=== PATIENT | male | born 1980 | race Caucasian/White ===

== ENCOUNTER 2017-03-26 16:24 | Outpatient (CLI) | payer OTHER ==
[2015-05-03 17:25] VITALS: BMI 25.8
[2017-03-26 17:23] LABS: BASOPHILS # (AUTO) 0.1 K/uL (0-0.2); BASOPHILS % (AUTO) 0.6 % (0.0-3.0); EOSINOPHILS # (AUTO) 0.1 K/ul (0.0-0.7); EOSINOPHILS % (AUTO) 1.7 % (0.0-7.0); IMMATURE GRANULOCYTE % (AUTO) 0.2 % (0.0-5.0); LYMPHOCYTES # (AUTO) 2.9 K/uL (0.60-3.4); LYMPHOCYTES % (AUTO) 34.8 (10.0-50.0); MEAN CORPUSCULAR HGB CONC 33.3 (31.8-35.4); MEAN CORPUSCULAR VOLUME 96.1 fl (80.0-94.0); MONOCYTES # (AUTO) 0.4 K/uL (0.4-2.0); MONOCYTES % (AUTO) 4.6 (0-10); NEUTROPHILS # (AUTO) 4.8 K/ul (2.0-6.9); NEUTROPHILS % (AUTO) 58.1; PLATELET COUNT 217 10^3/uL (140-440); RED BLOOD COUNT 4.06 10^6/ul (4.70-6.10); WHITE BLOOD COUNT 8.27 K/ul (4.2-10.2)
[2017-03-26 17:36] LABS: ALBUMIN 4.1 g/dL (3.4-5.0); ALBUMIN/GLOBULIN RATIO 1.08; ANION GAP 12.2; BILIRUBIN,TOTAL 0.42 mg/dL (0.00-1.20); BUN/CREATININE RATIO 10.46; CALCIUM 9.6 mg/dL (8.2-10.2); CREATININE 0.86 mg/dL (0.60-1.10); POTASSIUM 4.2 mmol/L (3.5-5.1); TOTAL PROTEIN 7.9 g/dL (6.4-8.2)
[2017-04-01 19:09] LABS: IGG P18 AB Absent (.); IGG P23 AB Absent (.); IGG P28 AB Absent (.); IGG P30 AB Absent (.); IGG P39 AB Absent (.); IGG P41 AB Present (.); IGG P45 AB Absent (.); IGG P58 AB Absent (.); IGG P66 AB Absent (.); IGG P93 AB Absent (.); IGM P39 AB Absent (.); IGM P41 AB Absent (.)
[2017-04-02 16:25] LABS: LYME IGG WB INTERP Negative (.); LYME IGM WB INTERP Negative (.)
== END 2017-03-26 16:25 | disposition home or self-care (01) ==
LOC: LAB 16:24
PROVIDERS: ATTEND Emergency Medicine
DX: E78.5 Hyperlipidemia, unspecified (principal); K21.9 Gastro-esophageal reflux disease without esophagitis; I10 Essential (primary) hypertension; I67.1 Cerebral aneurysm, nonruptured; R51 Headache; S40.861A Insect bite (nonvenomous) of right upper arm, initial encounter; W57.XXXA Bitten or stung by nonvenomous insect and other nonvenomous arthropods, initial encounter
CPT/HCPCS: 36415; 80053; 85025; 86617; 86757; 87798

== ENCOUNTER 2017-04-27 16:01 | Outpatient (CLI) ==
[2015-05-03 17:25] VITALS: BMI 25.8
[2017-04-27 17:01] LABS: BASOPHILS # (AUTO) 0.1 K/uL (0-0.2); BASOPHILS % (AUTO) 0.9 % (0.0-3.0); EOSINOPHILS # (AUTO) 0.2 K/ul (0.0-0.7); EOSINOPHILS % (AUTO) 2.1 % (0.0-7.0); HEMATOCRIT 38.8 % (42.0-52.0); IMMATURE GRANULOCYTE % (AUTO) 0.4 % (0.0-5.0); LYMPHOCYTES # (AUTO) 4.6 K/uL (0.60-3.4); LYMPHOCYTES % (AUTO) 48.6 (10.0-50.0); MEAN CORPUSCULAR HEMOGLOBIN 32.3 pg (27.0-31.0); MEAN CORPUSCULAR HGB CONC 33.5 (31.8-35.4); MEAN CORPUSCULAR VOLUME 96.5 fl (80.0-94.0); MONOCYTES # (AUTO) 0.8 K/uL (0.4-2.0); MONOCYTES % (AUTO) 8.4 (0-10); NEUTROPHILS # (AUTO) 3.7 K/ul (2.0-6.9); NEUTROPHILS % (AUTO) 39.6; PLATELET COUNT 279 10^3/uL (140-440); RED BLOOD COUNT 4.02 10^6/ul (4.70-6.10); WHITE BLOOD COUNT 9.39 K/ul (4.2-10.2)
== END 2017-04-27 16:02 | disposition home or self-care (01) ==
LOC: LAB 16:01
PROVIDERS: ATTEND Nurse Practitioner Family
DX: D72.829 Elevated white blood cell count, unspecified (principal)
CPT/HCPCS: 36415; 85025

== ENCOUNTER 2017-07-28 14:06 | Outpatient (CLI) | payer OTHER ==
[2015-05-03 17:25] VITALS: BMI 25.8
[2017-07-28 14:17] LABS: BASOPHILS # (AUTO) 0.1 K/uL (0-0.2); BASOPHILS % (AUTO) 0.5 % (0.0-3.0); EOSINOPHILS # (AUTO) 0.2 K/ul (0.0-0.7); EOSINOPHILS % (AUTO) 1.6 % (0.0-7.0); HEMATOCRIT 38.3 % (42.0-52.0); HEMOGLOBIN 12.8 g/dl (14.0-18.0); IMMATURE GRANULOCYTE % (AUTO) 0.2 % (0.0-5.0); LYMPHOCYTES # (AUTO) 3.5 K/uL (0.60-3.4); LYMPHOCYTES % (AUTO) 28.9 (10.0-50.0); MEAN CORPUSCULAR HEMOGLOBIN 32.1 pg (27.0-31.0); MEAN CORPUSCULAR HGB CONC 33.4 (31.8-35.4); MONOCYTES # (AUTO) 0.9 K/uL (0.4-2.0); MONOCYTES % (AUTO) 6.9 (0-10); NEUTROPHILS # (AUTO) 7.6 K/ul (2.0-6.9); NEUTROPHILS % (AUTO) 61.9; PLATELET COUNT 207 10^3/uL (140-440); RED BLOOD COUNT 3.99 10^6/ul (4.70-6.10); WHITE BLOOD COUNT 12.24 K/ul (4.2-10.2)
[2017-07-29 07:21] LABS: RHEUMATOID ARTHRITIS FACTOR < 10.0 IU/mL (0.0-13.9)
[2017-07-29 13:17] LABS: ANTI-NUCLEAR ANTIBODY SCREEN Negative (Negative)
== END 2017-07-28 14:07 | disposition home or self-care (01) ==
LOC: LAB 14:06
PROVIDERS: ATTEND Emergency Medicine
DX: M25.649 Stiffness of unspecified hand, not elsewhere classified (principal); I10 Essential (primary) hypertension
CPT/HCPCS: 36415; 85025; 86038; 86430

== ENCOUNTER 2018-05-03 10:11 | Outpatient (CLI) ==
[2015-05-03 17:25] VITALS: BMI 25.8
--- NOTE | 2018-05-03 12:35 | CT ---
EXAM: CT head without contrast. HISTORY: Weakness. COMPARISON: 05/03/2015. TECHNIQUE: Multiple axial images of the brain were obtained from the skull base through the vertex w ithout intravenous contrast. Multiplanar reformats were provided. FINDINGS: Left parasellar aneurysm coils again noted. Discrete some beam hardening artifact, limiti ng evaluation of the brain parenchyma near this area. Otherwise, there is no intracranial hemorrhage or extraaxial collection. The major-white differentiation is maintained without evidence for acute l arge vascular territory infarction. The cortical sulci and basal cisterns are well visualized. Ther e is no hydrocephalus, mass effect, or midline shift. The paranasal sinuses and mastoid air cells ar e clear. The calvarium is intact. Since the prior study, there has been no significant interval forest nge. IMPRESSION: No acute intracranial abnormality.
== END 2018-05-03 10:12 | disposition home or self-care (01) ==
LOC: RAD 10:11
PROVIDERS: ATTEND Emergency Medicine
DX: R51 Headache (principal); I10 Essential (primary) hypertension; I67.1 Cerebral aneurysm, nonruptured; E78.5 Hyperlipidemia, unspecified; R53.1 Weakness
CPT/HCPCS: 36415; 80053; 80061; 84443; 85025

== ENCOUNTER 2019-02-08 10:59 | Outpatient (CLI) ==
[2015-05-03 17:25] VITALS: BMI 25.8
== END 2019-02-08 11:00 | disposition home or self-care (01) ==
LOC: RHC-LAB 10:59 → FCC-LAB 11:00
PROVIDERS: ATTEND Family Medicine
DX: I67.1 Cerebral aneurysm, nonruptured (principal); I10 Essential (primary) hypertension; F33.1 Major depressive disorder, recurrent, moderate; Z13.220 Encounter for screening for lipoid disorders; R21 Rash and other nonspecific skin eruption
CPT/HCPCS: 36415; 80053; 80061; 83520; 85025; 85651; 86038; 86256

== ENCOUNTER 2023-06-08 14:13 | Observation (INO) ==
[2023-06-08 14:31] VITALS: BP 120/69
[2023-06-08] MEDS ORDERED: TORADOL IM ONE (15:17)
[2023-06-08 15:36] LABS: BASOPHILS # (AUTO) 0.1 K/uL (0-0.2); BASOPHILS % (AUTO) 0.6 % (0.0-3.0); EOSINOPHILS # (AUTO) 0.3 K/ul (0.0-0.7); HEMATOCRIT 37.1 % (42.0-52.0); IMMATURE GRANULOCYTE # (AUTO) 0.1 (0.0-1.0); IMMATURE GRANULOCYTE % (AUTO) 0.4 % (0.0-5.0); LYMPHOCYTES # (AUTO) 3.1 K/uL (0.60-3.4); LYMPHOCYTES % (AUTO) 19.2 (10.0-50.0); MEAN CORPUSCULAR HEMOGLOBIN 31.2 pg (27.0-31.0); MEAN CORPUSCULAR HGB CONC 32.3 (31.8-35.4); MEAN CORPUSCULAR VOLUME 96.4 fl (80.0-94.0); MONOCYTES # (AUTO) 1.4 K/uL (0.4-2.0); MONOCYTES % (AUTO) 8.4 (0-10); NEUTROPHILS # (AUTO) 11.3 K/ul (2.0-6.9); NEUTROPHILS % (AUTO) 69.4 % (42.2-75.2); PLATELET COUNT 259 10^3/uL (140-440); RDW COEFFICIENT OF VARIATION 12.9 % (11.6-14.8); RED BLOOD COUNT 3.85 10^6/ul (4.70-6.10); WHITE BLOOD COUNT 16.29 K/ul (4.2-10.2)
--- NOTE | 2023-06-08 15:47 | CT ---
EXAM: CT ABDOMEN AND PELVIS HISTORY: Abdominal pain, infrequent bowel movements TECHNIQUE: CT abdomen and pelvis without intravenous contrast. Images were reconstructed using 5 mm section thickness. Reformations were prepared. COMPARISON: 01/10/2013 FINDINGS: Diagnostic limitations exist without including intravenous contrast enhanced images. Live r appears normal. Normal gallbladder. No biliary dilatation or pancreatic pathology. Spleen and ad renal glands are unremarkable. Kidneys and ureters appear normal. There is mild atherosclerotic dis ease. Stable nonspecific mildly prominent retroperitoneal, mesenteric and inguinal lymph nodes. Sto mach is normal. What appears to represent the appendix is normal. There is at least mild wall thick ening of the rectosigmoid colon with mild paracolic fat stranding suggesting active distal colitis/pr octitis. The bowel was otherwise within normal limits. No excessive fecal retention. No bowel obst ruction, ascites or free air. Urinary bladder prostate are normal. No abdominal wall hernia. Bones are normal. Lung bases are clear. IMPRESSION: 1. There is at least mild wall thickening of the rectosigmoid colon with mild paracolic fat strandin g suggesting active distal colitis/proctitis. Consider inflammatory or infectious etiologies. The b owel was otherwise within normal limits. No excessive fecal retention. No bowel obstruction, ascite s or free air. 2. Minimal atherosclerosis. - - - - - All CT scans are performed using dose optimization techniques as appropriate to the performed exam an d include at least one of the following: Automated exposure control, adjustment of the mA and/or kV according t o size, and the use of iterative reconstruction technique.
[2023-06-08 15:52] LABS: ALANINE AMINOTRANSFERASE 36.4 U/L (0-50); ALBUMIN 4.42 g/dL (3.5-5.0); ALKALINE PHOSPHATASE 111.7 U/L (38-126); ASPARTATE AMINO TRANSFERASE 31.2 U/L (17-59); BILIRUBIN,TOTAL 0.34 mg/dL (0.2-1.3); BLOOD UREA NITROGEN 18.9 mg/dL (9-20); CALCIUM 9.67 mg/dL (8.4-10.2); CARBON DIOXIDE 22.8 mmol/L (22-30.0); CREATININE 1.26 mg/dL (0.60-1.10); GLUCOSE 104.7 mg/dL (74-106); POTASSIUM 4.61 mmol/L (3.5-5.1); SODIUM 138.5 mmol/L (134.5-145); TOTAL PROTEIN 8.77 g/dL (6.3-8.2)
[2023-06-08 16:04] LABS: BILIRUBIN,URINE Negative (NEGATIVE); CLARITY,URINE Clear (CLEAR); COLOR,URINE Yellow (YELLOW); GLUCOSE, URINE (UA) Negative (NEGATIVE); KETONES,URINE Negative (NEGATIVE); LEUKOCYTE ESTERASE ,URINE Negative (NEGATIVE); NITRITE,URINE Negative (NEGATIVE); PROTEIN,URINE Negative (NEGATIVE); URINE, BLOOD Negative (NEGATIVE); UROBILINOGEN,URINE 0.2 (0.2)
[2023-06-08] MEDS ORDERED: ZOSYN 3.375 GM 3.375 GM in SODIUM CHLORIDE 100ML 100 ML IV ONE (16:48)
[2023-06-08] MEDS ORDERED: LACTULOSE PO STA (16:48)
[2023-06-08] MEDS ORDERED: K-DUR PO STA (16:49)
--- NOTE | 2023-06-08 16:58 | ED.PDOC ---
General ED Provider: Dr. NAKITA RUEDA MD Chief Complaint: Constipation Stated Complaint: abdominal pain, constipation Time Seen by Provider: 06/08/23 15:10 Information Source: Patient Primary Care Provider: BILL CARMICHAEL MD Referred to ED by: PCP Nursing and Triage Documentation Reviewed and Agree: Yes GI Complaint Exam Abdominal Pain Complaint/Exam Onset: Gradual Duration: few days Symptoms Are: Still present Timing: Constant Initial Severity: Moderate Current Severity: Moderate Location of Pain: RLQ, LLQ and Suprapubic Character: Reports Dull Review of Systems Review Of Systems Constitutional: Reports Weakness All Other Systems: Reviewed and Negative [facility] Medical History Hyperlipidemia E78.5 - Hyperlipidemia, unspecified (ICD-10) Family History Mother Diabetes FATHER Ulcerative colitis Social History Smoking and tobacco status: Current some day smoker Tobacco type: cigarettes Smoking cigarettes per day: 6 Tobacco: How many years used: 10 Passive smoking exposure: No How long ago did patient quit smoking: has gone from 2 ppd to 4-6 cigs per day Quit status: considering quitting Second hand smoke exposure: Yes Smoking risk assessment performed: No Alcohol intake: current Counseling given: No Counseling provided: none Substance use type: does not use Counseling given: No Counseling provided: none Ludmila/nondenominational: WORSHIP Special ludmila needs: No Agree to transfusion: Yes Adopted: No Caregiver/support person: No Foster care: No Household members: none Housing: house Marital status: D Lives independently: Yes Daycare: no daycare Number of children: 2 Number of grandchildren: 0 Highest education level completed: high school graduate Financial difficulty paying for basics: hard service: No jail: No Current occupational status: unemployed and disabled Current occupational exposures/hazards: No Pets and animals: Yes Leisure activites: exercise, hunting and fishing History of recent travel: Yes Sexually active: Yes Do you think of yourself as: straight/heterosexual Current gender identity: male Seatbelt use: always Helmet use: No Drives intoxicated or rides with intoxicated pharmacy delivery driver: No Current diet type/program: regular Caffeine: Yes Eating out: 1-3 times/week Reads food labels: seldom or never During the past year weight has: remained stable Water heater temperature set < 120 degrees: Yes Working smoke detector in home: Yes Fire extinguisher in home: Yes Carbon monoxide detector in home: Yes Firearms in home: Yes Firearms unloaded and locked: Yes What type of physical activity do you participate in?: walking Physical activity functional status: independent ambulation How many days of moderate to strenuous exercise, like a brisk walk, did you do in the last 7 days: 4 Surgical History 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) History of neurologic surgery Z98.890 - Other specified postprocedural states (ICD-10) Physical Exam Physical Exam Appearance: Reports Ill-appearing Ill-appearing: Mild Pain Distress: Mild Eyes: Reports LAURA and EOMI ENT: Reports Ears normal and Nose normal Neck: Supple Respiratory: Reports Airway patent, Breath sounds clear and Breath sounds equal Cardiovascular: Reports RRR, Pulses normal, No rub and No murmur GI/: Reports Soft, Bowel sounds normal and Tender (Generalized pelvic tenderness more in LLQ) Musculoskeletal: Reports Normal strength Skin: Reports Warm and Normal color Neurological: Reports Sensation intact and Motor intact Psychiatric: Reports Affect appropriate Interpretation EKG Interpretation EKG Interpretation By: ED Physician Time of EKG #1: 16:34 Rate: Normal Rhythm: Sinus Ectopy: None [place]: [place] Interpretation: early repolarization, No STEMI Physician Notification Case Discussed Physician Notified: Dr. Benito PCP Time of Notification: 16:00 Comments: patient will be admitted for IV antibiotics for colitis, Dr. benito agrees with plan of care Critical Care Note Critical Care Note Total Critical Care Time (mins): 0 Course Course 06/08/23 15:30 06/08/23 15:30 Orders, Labs, Meds: Lab Review 06/08/23 06/08/23 06/08/23 15:30 15:50 16:30 WBC 16.29 H RBC 3.85 L Hgb 12.0 L Hct 37.1 L MCV 96.4 H MCH 31.2 H MCHC 32.3 RDW Coeff of Yana 12.9 Plt Count 259 Immature Gran % (Auto) 0.4 Neut % (Auto) 69.4 Lymph % (Auto) 19.2 Harlan % (Auto) 8.4 Eos % (Auto) 2.0 Baso % (Auto) 0.6 Neut # (Auto) 11.3 H Lymph # (Auto) 3.1 Harlan # (Auto) 1.4 Eos # (Auto) 0.3 Baso # (Auto) 0.1 Immature Gran # (Auto) 0.1 Sodium 138.5 Potassium 4.61 Chloride 104.0 Carbon Dioxide 22.8 Anion Gap 16.31 BUN 18.9 Creatinine 1.26 H Estimated GFR (MDRD) 62.00 BUN/Creatinine Ratio 15.00 Glucose 104.7 Lactic Acid 0.89 Calcium 9.67 Total Bilirubin 0.34 AST 31.2 ALT 36.4 Alkaline Phosphatase 111.7 Total Protein 8.77 H Albumin 4.42 Globulin 4.35 Albumin/Globulin Ratio 1.01 Urine Color Yellow Urine Clarity Clear Urine pH 6.0 Ur Specific [place] 1.025 Urine Protein Negative Urine Glucose (UA) Negative Urine Ketones Negative Urine Blood Negative Urine Nitrite Negative Urine Bilirubin Negative Urine Urobilinogen 0.2 Ur Leukocyte Esterase Negative SARS CoV-2 RNA Rapid CHARLENE 06/08/23 16:40 WBC RBC Hgb Hct MCV MCH MCHC RDW Coeff of Yana Plt Count Immature Gran % (Auto) Neut % (Auto) Lymph % (Auto) [place] % (Auto) Eos % (Auto) Baso % (Auto) Neut # (Auto) Lymph # (Auto) [place] # (Auto) Eos # (Auto) Baso # (Auto) Immature Gran # (Auto) Sodium Potassium Chloride Carbon Dioxide Anion Gap BUN Creatinine Estimated GFR (MDRD) BUN/Creatinine Ratio Glucose Lactic Acid Calcium Total Bilirubin AST ALT Alkaline Phosphatase Total Protein Albumin Globulin Albumin/Globulin Ratio Urine Color Urine Clarity Urine pH Ur Specific [place] Urine Protein Urine Glucose (UA) Urine Ketones Urine Blood Urine Nitrite Urine Bilirubin Urine Urobilinogen Ur Leukocyte Esterase SARS CoV-2 RNA Rapid CHARLENE Negative Orders Category Date Time Status ADMIT OBSERVATION [PLACE PATIENT OBSERVATION] .TO ADMISSION 06/08/23 17:08 Active MEDSURG (NON-MONITORED BED) EKG-(ED ONLY) Stat CARDIO 06/08/23 16:27 Completed ACTIVITY .Early Mobilization for VTE Prevention CARE 06/08/23 17:56 Active GIVE HS SNACK 2100 CARE 06/08/23 17:56 Active INTAKE & OUTPUT Q8HR CARE 06/08/23 17:56 Active VITAL SIGNS Q4HR CARE 06/08/23 17:56 Active CLEAR LIQUID DIET DIETARY 06/08/23 Dinner Ordered HS SNACK DIETARY 06/08/23 Dinner Ordered Enema [ED ENEMA/RECTAL TUBE] .ONCE EMERGENCY 06/08/23 16:01 Active BLOOD CULTURE Stat LAB 06/08/23 16:50 Received CBC W/ AUTO DIFF DAILY@0600 LAB 06/09/23 06:00 Ordered CBC W/ AUTO DIFF DAILY@0600 LAB 06/10/23 06:00 Ordered CBC W/ AUTO DIFF Stat LAB 06/08/23 15:30 Completed CMP [COMPREHENSIVE METABOLIC PANEL] Stat LAB 06/08/23 15:30 Completed COMPREHENSIVE METABOLIC PANEL DAILY@0600 LAB 06/09/23 06:00 Ordered COMPREHENSIVE METABOLIC PANEL DAILY@0600 LAB 06/10/23 06:00 Ordered COVID [SARS COV-2 RNA RAPID CHARLENE] Stat LAB 06/08/23 16:40 Completed LACTIC ACID Stat LAB 06/08/23 16:30 Completed URINALYSIS C & S IF INDICATED Stat LAB 06/08/23 15:50 Completed Acetaminophen [Tylenol] Meds 06/08/23 17:56 Active 650 mg PO Q4H PRN Ketorolac Tromethamine [Toradol] Meds 06/08/23 15:17 Discontinued 60 mg IM ONCE ONE Lactulose Meds 06/08/23 16:48 Discontinued 20 gm PO ONCE STA Metoclopramide HCl [Reglan] Meds 06/08/23 17:56 Pending 10 mg IVP Q6H PRN Ondansetron HCl/Pf [Zofran 4 mg/2 ml] Meds 06/08/23 17:56 Active 4 mg IVP Q6H PRN Piperacillin Sodium/Tazobactam [Zosyn 3.375 gm] 3.375 Meds 06/08/23 16:48 Discontinued gm 0.9 % Sodium Chloride [Sodium Chloride 100Ml] 100 ml IV ONCE Piperacillin Sodium/Tazobactam [Zosyn 3.375 gm] 3.375 Meds 06/08/23 18:00 Active gm 0.9 % Sodium Chloride [Sodium Chloride 100Ml] 100 ml IV Q8H Potassium Chloride [K-Dur] Meds 06/08/23 16:49 Discontinued 20 meq PO ONCE STA Sodium Chloride 0.9% [Sodium Chloride] 1,000 ml Meds 06/08/23 18:00 Active IV 100 mls/hr CT ABDOMEN/PELVIS WO CONTRAST Stat RADS 06/08/23 15:10 Completed Medications Generic Name Dose Route Start Last Admin Trade Name Freq PRN Reason Stop Dose Admin Acetaminophen 650 mg 06/08/23 17:56 Acetaminophen 325 Mg Tablet PO Q4H PRN Pain Sodium Chloride 1,000 mls @ 100 mls/hr 06/08/23 18:00 Sodium Chloride IV .Q10H [facility] Piperacillin Sod/Tazobactam 100 mls @ 200 mls/hr 06/08/23 18:00 Sod 3.375 gm/ Sodium Chloride IV 06/11/23 17:59 Q8H [facility] Metoclopramide HCl 10 mg 06/08/23 17:56 Metoclopramide Hcl 10 Mg/2 Ml IVP Q6H PRN Nausea / Vomiting Ondansetron HCl 4 mg 06/08/23 17:56 Ondansetron Hcl/Pf 4 Mg/2 Ml Sdv IVP Q6H PRN Nausea / Vomiting Discontinued Medications Generic Name Dose Route Start Last Admin Trade Name Freq PRN Reason Stop Dose Admin Piperacillin Sod/Tazobactam 100 mls @ 200 mls/hr 06/08/23 16:48 06/08/23 18:43 Sod 3.375 gm/ Sodium Chloride IV 06/08/23 17:17 200 mls/hr ONCE ONE Administration Ketorolac Tromethamine 60 mg 06/08/23 15:17 06/08/23 15:31 Ketorolac Tromethamine 60 Mg/2 Ml Vial IM 06/08/23 15:18 60 mg ONCE ONE Administration Lactulose 20 gm 06/08/23 16:48 06/08/23 18:35 Lactulose 20 Gm/30 Ml Cup PO 06/08/23 16:49 20 gm ONCE STA Administration Potassium Chloride 20 meq 06/08/23 16:49 06/08/23 18:23 Potassium Chloride 20 Meq Tab PO 06/08/23 16:50 Not Given ONCE STA Vital Signs: Temp Pulse Resp BP Pulse Ox 06/08/23 14:19 98.8 F 76 14 120/69 98 43 years old male with a past medical history of hypertension, seizure disorder, dyslipidemia, brain aneurysm who was sent to the ER by Dr. Benito for abdominal pain/constipation. Patient have not had a bowel movement for the last few days and feeling pain in his lower abdomen tried multiple [id number] medications/suppositories for constipation but none helped he was at Dr. Carmichael office today who saw him and he wanted him to come to the ER to get checked. Patient's WBC is 16.7 with left shift CAT scan showed distal sigmoid colon rectal wall thickening with pericolic stranding consistent with active colitis. Patient will be treated with Fleet enema. Call Dr. Carmichael discussed the findings with him and recommended getting the patient admitted for IV anti biotics for his colitis at this time lactic acid is pending blood cultures pending then patient will get Zosyn 3.375 mg IV.Given the patient's elevated white cell count and the findings on the CAT scan patient will be admitted discussed the case with the hospitalist ebony Briseno and she accepted the patient to be admitted to her services. Discharge Plan Discharge Patient Disposition: ADMITTED INPATIENT Discharge Problem: Acute proctitis, Colitis, Constipation Did you review [place] [employer] for ALL controlled substances?: Not Applicable ED Provider: NAKITA RUEDA Condition: Stable Physician Progress Note: []
[2023-06-08 17:25] LABS: SARS COV-2 RNA RAPID NAAT NEGATIVE (NEGATIVE)
[2023-06-08] MEDS ORDERED: REGLAN IVP PRN (17:56)
[2023-06-08] MEDS ORDERED: ZOFRAN 4 MG/2 ML IVP PRN (17:56)
[2023-06-08] MEDS ORDERED: TYLENOL PO PRN (17:56)
[2023-06-08] MEDS ORDERED: ZOSYN 3.375 GM 3.375 GM in SODIUM CHLORIDE 100ML 100 ML IV SCH (18:00)
[2023-06-08] MEDS ORDERED: SODIUM CHLORIDE 1,000 ML IV SCH (18:00)
[2023-06-08] MEDS ORDERED: TORADOL IVP PRN (20:09)
[2023-06-08] MEDS ORDERED: PROTONIX IV ONE (20:15)
[2023-06-08] MEDS ORDERED: SODIUM CHLORIDE IV ONE (20:15)
[2023-06-08] MEDS ORDERED: NICODERM 21 MG TD SCH (21:00)
[2023-06-08 21:08] VITALS: PULSE 68; RESP 16; TEMP 98.1; BMI 24.5
--- NOTE | 2023-06-08 21:39 | PCM.SS ---
Provider Provider: LAURA CHRISTIANSON, [facility] [place], [place] Admission Date Admission Date: 06/08/23 Discharge Date Discharge Date: 06/08/23 Primary Care Physician Primary Care Physician: BILL CARMICHAEL MD Chief Complaint Reason For Visit: COLITIS, PROCTITIS History of Present Illness History of Present Illness: Admitted 06/08/23 19:26, this 43 year old /WHITE/M presented to the ER with complaints of constipation. Patient takes narcotics for chronic pain and was sent to the ER from Dr. Carmichael' office to rule out a bowel obstruction. No obstruction was found, but CT scan showed colitis/proctitis. Patient was admitted to the floor after hospitalist day time hours and was not physically examined by this provider. Thus unable to provide further hpi and ROS. Patient reported to nurse that he would like to sign out AMA and reported that he would follow-up with Dr. Carmichael in his office. 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) History of neurologic surgery Z98.890 - Other specified postprocedural states (ICD-10) Family History Mother Diabetes FATHER Ulcerative colitis Social History Smoking and tobacco status: Current some day smoker Tobacco type: cigarettes Smoking cigarettes per day: 6 Tobacco: How many years used: 10 Passive smoking exposure: No How long ago did patient quit smoking: has gone from 2 ppd to 4-6 cigs per day Quit status: considering quitting Second hand smoke exposure: Yes Smoking risk assessment performed: No Alcohol intake: current Counseling given: No Counseling provided: none Substance use type: does not use Counseling given: No Counseling provided: none Ludmila/buddhism: YARSANISM Special ludmila needs: No Agree to transfusion: Yes Adopted: No Caregiver/support person: No Foster care: No Household members: none Housing: house Marital status: D Lives independently: Yes Daycare: no daycare Number of children: 2 Number of grandchildren: 0 Highest education level completed: high school graduate Financial difficulty paying for basics: hard service: No FDC: No Current occupational status: unemployed and disabled Current occupational exposures/hazards: No Pets and animals: Yes Leisure activites: exercise, hunting and fishing History of recent travel: Yes Sexually active: Yes Do you think of yourself as: straight/heterosexual Current gender identity: male Seatbelt use: always Helmet use: No Drives intoxicated or rides with intoxicated stacker driver: No Current diet type/program: regular Caffeine: Yes Eating out: 1-3 times/week Reads food labels: seldom or never During the past year weight has: remained stable Water heater temperature set < 120 degrees: Yes Working smoke detector in home: Yes Fire extinguisher in home: Yes Carbon monoxide detector in home: Yes Firearms in home: Yes Firearms unloaded and locked: Yes What type of physical activity do you participate in?: walking Physical activity functional status: independent ambulation How many days of moderate to strenuous exercise, like a brisk walk, did you do in the last 7 days: 4 Medications Mecications: Medications at Discharge (Home Meds & RX) diphenhydramine HCl 25 mg capsule (Sleep Aid (diphenhydramine)) 25 mg PO QHS 08/28/21 simvastatin 20 mg tablet 20 mg PO QDAY #90 tabs 12/05/22 pantoprazole 40 mg tablet,delayed release See Rx Instructions .Route .COMPLEX #60 tabs 04/21/23 alprazolam 0.5 mg tablet (Xanax) 0.5 mg PO QDAY #12 tabs 05/06/23 levetiracetam 500 mg tablet,extended release 24 hr (Keppra XR) 500 mg PO BID #60 tabs 05/06/23 lisinopril 20 mg tablet 20 mg PO QDAY Essential Hypertenson #90 tabs 06/01/23 metoprolol tartrate 25 mg tablet 25 mg PO BID 90 days #180 tab-caps 06/01/23 amoxicillin 875 mg-potassium clavulanate 125 mg tablet 1 tab PO BID #20 tabs 06/08/23 oxycodone-acetaminophen 10 mg-325 mg tablet 1 tab PO QID PRN pain 06/08/23 Allergies Allergies Allergy/AdvReac Type Severity Reaction Status Date / Time naproxen [From Aleve] AdvReac Severe Difficulty Verified 06/08/23 20:27 Breathing sildenafil [From Viagra] AdvReac Intermediate Headache Verified 06/08/23 20:27 topiramate [From Topamax] AdvReac swelling Verified 06/08/23 20:27 of tounge/throat Vital Signs (Last 4 Hours) Vital Signs Last 4 Hours: Vital Signs: Last 4 Hours 06/08/23 19:57 Temperature 98.1 F Temperature Source Oral Pulse Rate 68 Respiratory Rate 16 Blood Pressure Left Arm 101/61 Blood Pressure Position Sitting O2 Sat by Pulse Oximetry 100 Oxygen Delivery Method Room Air Height 5 ft 9 in Weight 166 lb Labs This Visit Labs This Visit: Labs This Visit 06/08/23 06/08/23 06/08/23 15:30 15:50 16:30 WBC 16.29 H RBC 3.85 L Hgb 12.0 L Hct 37.1 L MCV 96.4 H MCH 31.2 H MCHC 32.3 RDW Coeff of Yana 12.9 Plt Count 259 Immature Gran % (Auto) 0.4 Neut % (Auto) 69.4 Lymph % (Auto) 19.2 [place] % (Auto) 8.4 Eos % (Auto) 2.0 Baso % (Auto) 0.6 Neut # (Auto) 11.3 H Lymph # (Auto) 3.1 Sumner # (Auto) 1.4 Eos # (Auto) 0.3 Baso # (Auto) 0.1 Immature Gran # (Auto) 0.1 Sodium 138.5 Potassium 4.61 Chloride 104.0 Carbon Dioxide 22.8 Anion Gap 16.31 BUN 18.9 Creatinine 1.26 H Estimated GFR (MDRD) 62.00 BUN/Creatinine Ratio 15.00 Glucose 104.7 Lactic Acid 0.89 Calcium 9.67 Total Bilirubin 0.34 AST 31.2 ALT 36.4 Alkaline Phosphatase 111.7 Total Protein 8.77 H Albumin 4.42 Globulin 4.35 Albumin/Globulin Ratio 1.01 Urine Color Yellow Urine Clarity Clear Urine pH 6.0 Ur Specific [place] 1.025 Urine Protein Negative Urine Glucose (UA) Negative Urine Ketones Negative Urine Blood Negative Urine Nitrite Negative Urine Bilirubin Negative Urine Urobilinogen 0.2 Ur Leukocyte Esterase Negative SARS CoV-2 RNA Rapid CHARLENE 06/08/23 16:40 WBC RBC Hgb Hct MCV MCH MCHC RDW Coeff of Yana Plt Count Immature Gran % (Auto) Neut % (Auto) Lymph % (Auto) [place] % (Auto) Eos % (Auto) Baso % (Auto) Neut # (Auto) Lymph # (Auto) Sumner # (Auto) Eos # (Auto) Baso # (Auto) Immature Gran # (Auto) Sodium Potassium Chloride Carbon Dioxide Anion Gap BUN Creatinine Estimated GFR (MDRD) BUN/Creatinine Ratio Glucose Lactic Acid Calcium Total Bilirubin AST ALT Alkaline Phosphatase Total Protein Albumin Globulin Albumin/Globulin Ratio Urine Color Urine Clarity Urine pH Ur Specific [place] Urine Protein Urine Glucose (UA) Urine Ketones Urine Blood Urine Nitrite Urine Bilirubin Urine Urobilinogen Ur Leukocyte Esterase SARS CoV-2 RNA Rapid CHARLENE Negative Imaging Imaging: EXAM: CT ABDOMEN AND PELVIS HISTORY: Abdominal pain, infrequent bowel movements TECHNIQUE: CT abdomen and pelvis without intravenous contrast. Images were reconstructed using 5 mm section thickness. Reformations were prepared. COMPARISON: 01/10/2013 FINDINGS: Diagnostic limitations exist without including intravenous contrast enhanced images. Liver appears normal. Normal gallbladder. No biliary dilatation or pancreatic pathology. Spleen and adrenal glands are unremarkable. Kidneys and ureters appear normal. There is mild atherosclerotic disease. Stable nonspecific mildly prominent retroperitoneal, mesenteric and inguinal lymph nodes. Stomach is normal. What appears to represent the appendix is normal. There is at least mild wall thickening of the rectosigmoid colon with mild paracolic fat stranding suggesting active distal colitis/proctitis. The bowel was otherwise within normal limits. No excessive fecal retention. No bowel obstruction, ascites or free air. Urinary bladder prostate are normal. No abdominal wall hernia. Bones are normal. Lung bases are clear. IMPRESSION: 1. There is at least mild wall thickening of the rectosigmoid colon with mild paracolic fat stranding suggesting active distal colitis/proctitis. Consider inflammatory or infectious etiologies. The bowel was otherwise within normal limits. No excessive fecal retention. No bowel obstruction, ascites or free air. 2. Minimal atherosclerosis. Review Review Statement: I have independently reviewed and interpreted the labs/EKGs/imaging that were ordered by the ER provider. I have reviewed all outside records that are available currently in our EMR including imaging/notes/labs from previous visits. Plan Reccomendations/Plan: 1. Colitis/Proctitis - started on zosyn in the ER, clear liquid diet, zofran and protonix ordered, torodol for pain, NS@100mL/hr; also received enema in ER 2. Leukocytosis - in setting of colitis/proctitis, treating with zosyn, trend and monitor for improvement 3. Constipation in setting of chronic opiate use - stool softener, increase fiber and fluids in diet 4. Hypertension - chronic, continue home medications 5. Seizures - chronic, continue home medications Additional Planning: Case discussed with ED Physician, Dr. Bennett DVT Prophylaxis: Up ad [place] [facility] minutes spent discussing advance care planning. Disposition: Admit to: Med/Surg Observation Discussed Plan of Care with Dr. Richard Mckeon If patient discharged with Left Ventricular Systolic Dysfunction: NA Discharged with a beta cathi? [] If no, why not? [] Clear liquid diet advance as tolerated Activity as tolerated Complete course of augmentin to treat Colitis Follow-up with Dr. Carmichael this week Limit use of opiates at this time due to colitis Review With Patient Reviewed with Patient and Family: Patient and family have been counseled on condition and care plan and have no immediate questions. I have personally discussed and reviewed the patient's visit/current labs/imaging/decision making with Dr. Brenda Mckeon, my supervising attending. Total number of minutes spent with patient 85 min. More than 50% of the time spent with this patient was devoted to counseling and coordination of care. Time of Admission:06/08/23 19:26 Time of Discharge: 06/08/23 2130 Discharge Plan Discharge Discharge Orders: Discharge Patient (ONCE); Ordered 06/08/23 Ordered By: GRACIELA GARCIA Activity Restrictions/Additional Instructions: Clear liquid diet advance as tolerated Activity as tolerated Complete course of augmentin to treat Colitis Follow-up with Dr. Carmichael this week Limit use of opiates at this time due to colitis. Instructions: Colitis (ED) Patient Disposition: AMA Prescriptions: New amoxicillin-pot clavulanate 875-125 mg tablet 1 tab PO BID Qty: 20 0RF Continued simvastatin 20 mg tablet 20 mg PO QDAY Qty: 90 1RF pantoprazole 40 mg tablet,delayed release (DR/EC) See Rx Instructions .ROUTE .COMPLEX Qty: 60 3RF Dose Instruction: TAKE 1 TABLET BY MOUTH TWICE DAILY Rx Instructions: TAKE 1 TABLET BY MOUTH TWICE DAILY levetiracetam [Keppra XR] 500 mg tablet extended release 24 hr 500 mg PO BID Qty: 60 2RF alprazolam [Xanax] 0.5 mg tablet 0.5 mg PO QDAY Qty: 12 1RF Rx Instructions: 2-3x weekly. metoprolol tartrate 25 mg tablet 25 mg PO BID 90 Days Qty: 180 2RF lisinopril 20 mg tablet 20 mg PO QDAY Qty: 90 1RF oxycodone-acetaminophen 10-325 mg tablet 1 tab PO QID PRN (Reason: pain) Patient Comments: TAKE 1 TABLET BY MOUTH FOUR TIMES DAILY diphenhydramine HCl [Sleep Aid (diphenhydramine)] 25 mg capsule 25 mg PO QHS Did you review [place] [employer] for ALL controlled substances?: No Discussed opioids are addictive and Narcan is available by prescription or from pharmacy.: No Condition: Stable
[2023-06-09] MEDS ORDERED: SODIUM CHLORIDE IV SCH (09:00)
[2023-06-09] MEDS ORDERED: PROTONIX IV SCH (09:00)
== END 2023-06-08 22:35 | disposition left against medical advice (07) ==
LOC: MEDSURG B 14:13 → ED 14:13 → MEDSURG B 19:55
PROVIDERS: ADMIT Hospitalist; ATTEND Nurse Practitioner Family
DX: F17.210 Nicotine dependence, cigarettes, uncomplicated; Z79.891 Long term (current) use of opiate analgesic; K51.20 Ulcerative (chronic) proctitis without complications; G89.29 Other chronic pain; K59.03 Drug induced constipation; Z79.899 Other long term (current) drug therapy; R56.9 Unspecified convulsions; D72.829 Elevated white blood cell count, unspecified; I70.90 Unspecified atherosclerosis; I10 Essential (primary) hypertension; Z51.81 Encounter for therapeutic drug level monitoring; Z20.822 Contact with and (suspected) exposure to COVID-19; T40.2X5A Adverse effect of other opioids, initial encounter